=== PATIENT | female | born 1980 | race Hispanic/Latino ===

== ENCOUNTER 2022-05-05 16:58 | Emergency (ER) | payer BC ==
[~2022-05-05] VITALS: Ht 154.9 cm; Wt 101.2 kg
[2022-05-05 17:18] LABS: BASOPHILS # (AUTO) 0.1 (0.0-0.1); BASOPHILS % 0.8 % (0.0-1.0); EOSINOPHILS # (AUTO) 0.1 (0.0-0.4); EOSINOPHILS % 1.8 % (0.0-6.0); HEMATOCRIT 41.8 % (34.2-44.1); HEMOGLOBIN 14.6 g/dL (12.0-16.0); LYMPHOCYTES # (AUTO) 1.8 (1.0-3.2); LYMPHOCYTES % 24.4 % (18.0-39.1); MEAN CORPUSCULAR HGB CONC 34.9 g/dL (31-35); MEAN CORPUSCULAR VOLUME 97.2 fL (81-99); MONOCYTES # (AUTO) 0.8 (0.2-0.8); MONOCYTES % 10.6 % (4.4-11.3); NEUTROPHILS # (AUTO) 4.6 (2.1-6.9); NEUTROPHILS % 62.1 % (38.7-80.0); PLATELET COUNT 348 x10e3/uL (140-360); RED CELL DISTRIBUTION WIDTH 12.5 % (11.7-14.4)
[2022-05-05 17:35] LABS: ALANINE AMINOTRANSFERASE 88 IU/L (0-55); ALBUMIN 3.9 g/dL (3.5-5.0); ALKALINE PHOSPHATASE 60 IU/L (40-150); ANION GAP 13.6 mmol/L (8-16); BLOOD UREA NITROGEN 8 mg/dL (7-26); BUN/CREATININE RATIO 11 (6-25); CALCIUM 9.4 mg/dL (8.4-10.2); CARBON DIOXIDE 25 mmol/L (22-29); CHLORIDE 106 mmol/L (98-107); CREATINE KINASE 63 IU/L (29-168); CREATININE, SERUM 0.76 mg/dL (0.57-1.11); GLUCOSE 113 mg/dL (74-118); POTASSIUM 3.6 mmol/L (3.5-5.1); SODIUM 141 mmol/L (136-145)
[2022-05-05] MEDS ORDERED: ACETAMINOPHEN 325 MG TAB PO ONE (20:30)
[2022-05-05] MEDS ORDERED: ACETAMINOPHEN 325 MG TAB ONE (20:41)
[2022-05-05 21:34] LABS: CREATINE KINASE 58 IU/L (29-168)
[2022-05-05 22:35] VITALS: BP 149/99
== END 2022-05-05 22:39 | disposition home or self-care (01) ==
LOC: ER 17:38
DX: R07.89 Other chest pain (principal); R42 Dizziness and giddiness; M25.512 Pain in left shoulder; I34.1 Nonrheumatic mitral (valve) prolapse; Z86.718 Personal history of other venous thrombosis and embolism
CPT/HCPCS: 36415; 71045; 78580; 80053; 82550; 82553; 84484; 85025; 93005; 99284; A9540

== ENCOUNTER → 2022-05-23 | Outpatient (CLI) | payer BC | LOC: US 07:38 | PROVIDERS: ATTEND Internal Medicine Gastroenterology | DX: R10.10 Upper abdominal pain, unspecified (principal); R74.8 Abnormal levels of other serum enzymes | CPT/HCPCS: 76700 ==